=== PATIENT | male | born 1965 | race Two or more races ===

== ENCOUNTER 2021-08-16 09:50 | Emergency (ER) | payer OTHER ==
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
== END 2021-08-16 12:25 | disposition home or self-care (01) ==
LOC: JP.ED 09:50
DX: S22.41XA Multiple fractures of ribs, right side, initial encounter for closed fracture (principal); S42.111A Displaced fracture of body of scapula, right shoulder, initial encounter for closed fracture; S42.011A Anterior displaced fracture of sternal end of right clavicle, initial encounter for closed fracture; E11.9 Type 2 diabetes mellitus without complications; I10 Essential (primary) hypertension; Z79.84 Long term (current) use of oral hypoglycemic drugs; Z88.2 Allergy status to sulfonamides; Z79.899 Other long term (current) drug therapy; V89.2XXA Person injured in unspecified motor-vehicle accident, traffic, initial encounter; Y92.410 Unspecified street and highway as the place of occurrence of the external cause
CPT/HCPCS: 73200-26-RT; 73200-RT; 99283-25